=== PATIENT | male | born 1985 | race Caucasian/White ===

== ENCOUNTER 2016-06-16 18:21 | Emergency (ER) | payer OTHER ==
[~2016-06-16] VITALS: Ht 175.3 cm; Wt 99.8 kg
[2016-06-16] MEDS ORDERED: Ketorolac 30mg Inj IM ONE (20:00)
[2016-06-16] MEDS ORDERED: IBUPROFEN600 MG ORAL (20:31)
[2016-06-16 20:59] VITALS: BP 127/87
--- NOTE | 2016-06-16 23:26 | Emergency Room Report ---
History of Present Illness General Chief Complaint: Lower Back Pain or Injury Source: Patient Present Illness HPI The patient is a 31-year-old male presenting with lower back pain which began 3 weeks prior after falling down at work. The patient states that he was on a roof, his leg fell through the roof, and he fell onto his back. The patient states that he is now experiencing an 8/10 dull ache to the mid lower back. The pain is worse with movement such as bending over and twisting. Pain does not radiate. The patient denies numbness or tingling of the extremities. The patient denies prior injury to the back. The patient states that he has not been treated for this injury. Patient denies any other symptoms Allergies: Coded Allergies: No Known Allergies (Unverified , 06/16/16) Patient History Past Medical History: see triage record Pertinent Family History: none Reviewed Nursing Documentation: PMH: Agreed, PSxH: Agreed Nursing Documentation-PMH Past Medical History: No Stated History Review of Systems All Other Systems: negative except mentioned in HPI Physical Exam Vital Signs Date Time Temp Pulse Resp B/P Pulse Ox O2 Delivery O2 Flow Rate FiO2 06/16/16 19:13 98.2 97 14 127/79 96 Room Air Sp02 EP Interpretation: reviewed, normal General Appearance: no apparent distress, alert, GCS 15, non-toxic Head: normocephalic, atraumatic Eyes: bilateral eye PERRL, bilateral eye normal inspection ENT: hearing grossly normal, normal pharynx, no angioedema, normal voice Musculoskeletal: normal inspection, gait/station normal, normal range of motion , pelvis stable, tender - midline TTP over Lumbar spine Neurologic: alert, oriented x3, responsive, motor strength/tone normal, sensory intact, speech normal Psychiatric: judgement/insight normal, memory normal, mood/affect normal, no suicidal/homicidal ideation Reflexes: 3+ bicep (R), 3+ bicep (L), 3+ tricep (R), 3+ tricep (L), 3+ knee (R) , 3+ knee (L) Skin: normal color, no rash, warm/dry, well hydrated Medical Decision Making PA Attestation Dr. Mcnally is my supervising physician. Patient management was discussed with my supervising physician Diagnostic Impression: Primary Impression: Lumbar strain ER Course The patient is a 31-year-old male presenting with lower back pain which began 3 weeks prior after falling down at work. Differential diagnosis considered: Lumbar strain/sprain, contusion, fracture, disc herniation Physical exam: Vitals within normal limits. No current distress. There is tenderness to palpation over the mid lumbar spine only. No step-offs. Full active range of motion. Normal gait. Sensation intact to light touch CT scan of lumbar spine shows DDD. Otherwise unremarkable The patient is informed of these results and will be discharged home. Patient is given some time off of work and will follow up with primary care physician. CT/MRI/US Diagnostic Results CT/MRI/US Diagnostic Results : Imaging Test Ordered: CT L spine Impression DDD. Otherwise unremarkable Last Vital Signs Date Time Temp Pulse Resp B/P Pulse Ox O2 Delivery O2 Flow Rate FiO2 06/16/16 20:59 98.4 88 14 127/87 97 Room Air Status: improved Disposition: HOME, SELF-CARE Condition: Improved Scripts Ibuprofen* (MOTRIN*) 600 Mg Tablet 600 MG ORAL Q8H Y for For Pain, #30 TAB 0 Refills Prov: MARCELO KESSLER 06/16/16 Referrals: NON PHYSICIAN (PCP) Patient Instructions: Lumbosacral Strain, Back Pain, Adult Additional Instructions: I discussed my findings with the patient. All questions and concerns have been answered. Treatment and medication compliance have been addressed. I advised the patient that they need to follow up with PMD in 3-5 days. Return to ED if pain remains or worsens, numbness or tingling occurs, new rash is noticed, fever is noticed, or if needed for any reason. Patient verbalized understanding of discharge instructions. Patient advised he needs MRI if pain persists. MARCELO KESSLER Jun 16, 2016 23:26
--- NOTE | 2016-06-17 08:51 | Diagnostic Imaging Report ---
Indications: PAIN Technique: Spiral acquisitions obtained through the lumbar spine. Multiplanar reconstructions were generated. No IV contrast utilized. Total dose length product 547 mGycm. CTDIvol(s) 18 mGy Comparison: None Findings: The bony alignment is normal. The vertebral body heights are preserved. Disc spaces are preserved. There is mild degeneration of the bilateral sacroiliac joints. No significant disc bulge or protrusion, spinal stenosis, or neural foraminal stenosis is demonstrated. Impression: Negative This agrees with the preliminary interpretation provided overnight by Dr. Myers The CT scanner at [facility] is accredited by the [employer] and the scans are performed using protocols designed to limit radiation exposure to as low as reasonably achievable to attain images of sufficient resolution adequate for diagnostic evaluation.
== END 2016-06-16 21:12 | disposition home or self-care (01) ==
LOC: EMR 19:20
DX: S39.012A Strain of muscle, fascia and tendon of lower back, initial encounter (principal); W19.XXXA Unspecified fall, initial encounter; Y92.89 Other specified places as the place of occurrence of the external cause
CPT/HCPCS: 72131; 96372; 99284; J1885